=== PATIENT | female | born 1960 | race Caucasian/White ===

== ENCOUNTER 2018-02-06 07:14 | Day surgery (SDC) | payer BC ==
[2018-02-04 15:30] LABS: BASOPHILS % (AUTO) 0.4 % (0-1); EOSINOPHILS # (AUTO) 0.2 X10'3 (0-0.9); EOSINOPHILS % (AUTO) 1.8 % (0-6); LYMPHOCYTES # (AUTO) 3.7 X10'3 (1.1-4.8); LYMPHOCYTES % (AUTO) 36.4 % (21-51); MEAN CORPUSCULAR HEMOGLOBIN 30.1 PG (27.0-31.0); MEAN CORPUSCULAR HGB CONC 34.4 % (33.0-36.5); MEAN CORPUSCULAR VOLUME 87.4 FL (78-98); MEAN PLATELET VOLUME 9.7 FL (7.4-10.4); MONOCYTES # (AUTO) 0.4 X10'3 (0-0.9); MONOCYTES % (AUTO) 3.7 % (2-12); NEUTROPHILS # (AUTO) 5.8 X10'3 (1.8-7.7); NEUTROPHILS % (AUTO) 57.7 % (42-75); PRE OP HEMATOCRIT 39.1 % (35.0-45.0); PRE OP HEMOGLOBIN 13.5 g/dL (12.0-16.0); PRE OP PLATELET COUNT 253 X10'3 (140-440); RED BLOOD COUNT 4.47 X10'6 (4.20-5.60); RED CELL DISTRIBUTION WIDTH 13.2 % (11.5-14.5)
[2018-02-04 15:32] LABS: CLARITY,URINE SLIGHTLY CLOUDY (Clear); COLOR,URINE YELLOW (Yellow); GLUCOSE, URINE 100 mg/dl (Neg); KETONES,URINE NEGATIVE (Neg); LEUKOCYTE ESTERASE ,URINE NEGATIVE (Neg); NITRITES, URINE NEGATIVE (Neg); OCCULT BLOOD,URINE NEGATIVE (Neg); PH,URINE 5.5 (4.8-8.0); PROTEIN,URINE NEGATIVE (Neg); UROBILINOGEN,URINE 0.2 E.U/dL (0.2-1.0)
[2018-02-04 15:35] LABS: UA COLLECTION TYPE CLN CATCH MIDSTREAM
[2018-02-04 15:44] LABS: ALBUMIN 3.7 G/DL (3.4-5.0); ALBUMIN/GLOBULIN RATIO 0.9 (1.1-1.5); ALKALINE PHOSPHATASE 114 IU/L (46-116); BLOOD UREA NITROGEN 21 MG/DL (7-18); BUN/CREATININE RATIO 25.3 (6.6-38.0); CALCIUM 9.3 MG/DL (8.5-10.1); CHLORIDE 102 MMOL/L (99-107); CREATININE 0.83 MG/DL (0.40-0.90); PRE OP ALT 42 U/L (30-65); PRE OP ANION GAP 12 (8-16); PRE OP AST 20 U/L (10-37); PRE OP BILIRUB, TOTAL 0.4 MG/DL (0.0-1.0); PRE OP SODIUM 140 MMOL/L (135-145); TOTAL CARBON DIOXIDE 26.2 MMOL/L (24-32); TOTAL PROTEIN 7.6 G/DL (6.4-8.2); eGFR 70 ML/MIN
[2018-02-04 15:45] LABS: PRE OP GLUCOSE 202 MG/DL (70-104)
[2018-02-04 15:47] LABS: BACTERIA,URINE 2+ /HPF (Neg); MUCUS STRANDS MANY /LPF (Neg); RBC,URINE 0-2 /HPF (0-2); SQUAMOUS EPITHELIAL CELL,UR MANY /LPF (FEW); WBC,URINE 0-4 /HPF (0-4)
[2018-02-04 15:48] LABS: PRE OP POTASSIUM 3.3 MMOL/L (3.4-5.1)
[2018-02-06] VITALS (9 sets, daily range): BP systolic 113–157; BP diastolic 68–91
[~2018-02-06] VITALS: Ht 152.4 cm; Wt 105.1 kg
[~2018-02-06 07:14] MED LIST: clindamycin-Cleocin 900mg/D5W 50 ML IV ONE; famotidine 20mg tablet PO ONE; gentamicin inj 250 MG in normal saline 100ml IV soln 100 ML IV ONE; ringers solution, lacted 1,000 ML IV SCH
[2018-02-06] MEDS ORDERED: LISI1TAB11 PO (07:49)
[2018-02-06] MEDS ORDERED: BUPIVAcaine/PF 2.5 mg/ml (0.25%) 30ml vial ONE (08:18)
[2018-02-06] MEDS ORDERED: neostigmine methylsulfate 1 MG/ML 10ml vial ONE (08:30)
[2018-02-06] MEDS ORDERED: rocuronium 10mg/ml inj IV ONE (08:30)
[2018-02-06] MEDS ORDERED: glycopyrrolate 0.2mg/ml inj ONE (08:30)
[2018-02-06] MEDS ORDERED: dexamethasone sod phosphate 4mg/ml inj. ONE (08:30)
[2018-02-06] MEDS ORDERED: sevoflurane 250ml liquid IH ONE (08:30)
[2018-02-06] MEDS ORDERED: fentaNYL/PF 50MCG/1 ML 2ML syringe ONE (08:41)
[2018-02-06] MEDS ORDERED: LIDOcaine 1%/PF (10mg/ml) 5ml vial ONE (08:42)
[2018-02-06] MEDS ORDERED: propofol inj 20 ML IV ONE (08:42)
[2018-02-06] MEDS ORDERED: midazolam 2 mg/2 ml injection ONE (08:42)
[2018-02-06] MEDS ORDERED: ondansetron/PF 4mg/2ml inj ONE (08:53)
[2018-02-06] MEDS ORDERED: ketorolac trometh. 30mg/ml inj. ONE (08:53)
[2018-02-06] MEDS ORDERED: ringers solution, lacted 1,000 ML IV SCH (09:38)
[2018-02-06] MEDS ORDERED: ondansetron/PF 4mg/2ml inj IV PRN (09:40)
[2018-02-06] MEDS ORDERED: morphine 4 MG/ML inj SYRINge IV PRN (09:40)
[2018-02-06] MEDS ORDERED: proCHLORperazine 10 MG/2 ml inj IV PRN (09:40)
[2018-02-06] MEDS ORDERED: meperidine/PF 50mg/ml syringe IV PRN ×3 (09:40)
[2018-02-06] MEDS: morphine 4 MG/ML inj SYRINge IV PRN ×2 (10:03→10:13)
== END 2018-02-06 10:50 | disposition home or self-care (01) ==
LOC: PAS 07:14
PROVIDERS: ATTEND Surgery
DX: K80.10 Calculus of gallbladder with chronic cholecystitis without obstruction (principal); I10 Essential (primary) hypertension; E66.01 Morbid (severe) obesity due to excess calories; M19.90 Unspecified osteoarthritis, unspecified site; K21.9 Gastro-esophageal reflux disease without esophagitis; Z68.42 Body mass index [BMI] 45.0-49.9, adult; Z87.891 Personal history of nicotine dependence; Z85.41 Personal history of malignant neoplasm of cervix uteri; Z88.0 Allergy status to penicillin; Z88.1 Allergy status to other antibiotic agents; Z90.710 Acquired absence of both cervix and uterus; Z98.890 Other specified postprocedural states; Z79.899 Other long term (current) drug therapy
CPT/HCPCS: 36415; 47562; 80053; 81001; 82948; 85025; 93005; J1580; J1885; J2001; J2250; J2270; J2405; J2704; J3010; J3490; J7030; J7120; A7000; J1100; J2710

== ENCOUNTER 2025-05-29 17:01 | Emergency (ER) | payer MEDICARE, BC ==
[~2025-05-29] VITALS: Ht 152.4 cm; Wt 106.4 kg
[~2025-05-29 17:01] MED LIST changes: +LISI1TAB51 PO; -clindamycin-Cleocin 900mg/D5W 50 ML IV ONE; -famotidine 20mg tablet PO ONE; -gentamicin inj 250 MG in normal saline 100ml IV soln 100 ML IV ONE; -ringers solution, lacted 1,000 ML IV SCH
[2025-05-29 17:12] VITALS: RESP 15; O2SAT 97
[2025-05-29 18:04] VITALS: BP 180/95; PULSE 88
--- NOTE | 2025-05-29 18:04 | Physician Documentation ---
History of Present Illness ~ Chief Complaint: Wound Stated Complaint: L LEG BUMP Time Seen by MD: 17:42 HPI Patient is seen today with complaints of worsening wound/infection of her left posterior thigh mid thigh. Patient states this started as a small spot just a few days ago. Patient states he is diabetic with the last A1c being just over nine. Patient denies any fevers or chills or chest pain or shortness of breath or abdominal pain or nausea, vomiting, diarrhea or headache. Patient states she has any significant amount of pain of her left leg. Medication Reconciliation Allergies: Coded Allergies: Penicillins (Verified Allergy, Intermediate, HIVES,SWELLING, 02/05/18) sulfamethoxazole (Verified Allergy, Unknown, 05/29/25) trimethoprim (Verified Allergy, Unknown, 05/29/25) erythromycin base (Verified Adverse Reaction, Mild, NAUSEA/STOMACH CRAMPS, 02/05/18) Scheduled Lisinopril/Hydrochlorothiazide (Lisinopril-Hctz 20-12.5 mg Tab), 1 TAB PO DAILY, (Reported) Review of Systems Constitutional: Denies: chills, fever, weakness Eyes: Denies: pain, blurred vision ENT: Denies: ear pain, nose pain, throat pain, mouth pain Respiratory: Denies: cough, shortness of breath Cardiovascular: Denies: chest pain, palpitations Gastrointestinal: Denies: abdominal pain, nausea, vomiting Genitourinary: Denies: burning, dysuria Female Genitalia: Denies: vaginal discharge, pelvic pain Neurological: Denies: headache, dizziness Musculoskeletal: Denies: pain, swelling Integumentary: Denies: rash, lesions Allergic/Immunologic: Denies: hives, itching Hematologic/Lymphatic: Denies: no symptoms reported Psychiatric: Denies: depression, anxiety Physical Exam Vital Signs: Temperature: 99.1, Source: Temporal, Heart Rate: 92, Respiratory Rate: 15, BP: 215/90, Pulse Oximetry: 97, Weight: 106.360 Physical Exam General: Awake and Alert, no acute distress. HEENT: Conjunctiva pink, Sclera clear, Mucus Membranes moist. Neck: Supple without masses and tenderness. Resp: Unlabored. Lungs clear to auscultation bilaterally. Heart: Regular Rate and rhythm, normal S1 and S2 without murmur, rub or gallop. Abdomen: Soft and non tender no organomegaly Extremities: No cyanosis,clubbing or edema. Skin: Patient on exam does have erythema and induration measuring approximately 5 cm in diameter with central area of purulent drainage without any fluctuant mass. Area is exquisitely tender to palpation of her left posterior thigh midshaft. Progress Results/Orders Results/Orders Vital Signs 05/29/25 17:12 Temp 99.1 Pulse 92 Resp 15 B/P (MAP) 215/90 Pulse Ox 97 Medical Decision Making Findings Patient is seen today with complaints of worsening wound/infection of her left posterior thigh mid thigh. Patient states this started as a small spot just a few days ago. Patient states he is diabetic with the last A1c being just over nine. Patient denies any fevers or chills or chest pain or shortness of breath or abdominal pain or nausea, vomiting, diarrhea or headache. Patient states she has any significant amount of pain of her left leg. Patient's blood pressure was rechecked and found to be hypertensive at 180 systolic. Patient was given clonidine 0.1 mg by mouth along with Keflex 500 mg one tab by mouth. Prescription of Keflex 500 mg one tab t.i.d. for 10 days sent to patient's pharmacy. Patient will continue trying to get her blood sugars and check and will follow up with primary care in 2-5 days if no better as needed sooner. Return to ED with any worsening, concerning or changing symptoms. Departure Disposition: 01 HOME / SELF CARE / HOMELESS Impression: Primary Impression: Abscess Condition: Improved Discharge Instructions: Skin Abscess Additional Instructions: Patient's blood pressure was rechecked and found to be hypertensive at 180 systolic. Patient was given clonidine 0.1 mg by mouth along with Keflex 500 mg one tab by mouth. Prescription of Keflex 500 mg one tab t.i.d. for 10 days sent to patient's pharmacy. Patient will continue trying to get her blood sugars and check and will follow up with primary care in 2-5 days if no better as needed sooner. Return to ED with any worsening, concerning or changing symptoms. Referrals: NO PRIMARY CARE PROVIDER (PCP) Prescriptions Cephalexin*Monohydrate* (Keflex*) 500 Mg Capsule 1 CAP PO Q8H for 10 Days, #30 CAP Prov: THERESE BOUCHER 05/29/25 Signature Scribe Signature: No scribe Attestation: No scribe THERESE BOUCHER PAC May 29, 2025 18:04
[2025-05-29] MEDS ORDERED: CEPH-585 PO (18:06)
[2025-05-29 18:16] VITALS: TEMP 99.1
== END 2025-05-29 18:18 | disposition home or self-care (01) ==
LOC: ER 17:02
DX: L02.416 Cutaneous abscess of left lower limb (principal); E11.9 Type 2 diabetes mellitus without complications; Z88.0 Allergy status to penicillin; Z88.1 Allergy status to other antibiotic agents; Z88.2 Allergy status to sulfonamides; Z88.8 Allergy status to other drugs, medicaments and biological substances
CPT/HCPCS: 99283